=== PATIENT | female | born 1950 | race Caucasian/White ===

== ENCOUNTER 2018-05-05 11:44 | Outpatient (CLI) | payer OTHER | END 2018-05-05 15:00 | disposition home or self-care (01) | LOC: RAD 11:44 | DX: M99.01 Segmental and somatic dysfunction of cervical region (principal); M53.0 Cervicocranial syndrome; M99.02 Segmental and somatic dysfunction of thoracic region; M54.6 Pain in thoracic spine; M99.03 Segmental and somatic dysfunction of lumbar region; M54.16 Radiculopathy, lumbar region; M99.04 Segmental and somatic dysfunction of sacral region ==

== ENCOUNTER 2020-11-10 14:45 | Outpatient (CLI) | payer OTHER | END 2020-11-10 15:00 | disposition home or self-care (01) | LOC: PPH VACUNA 14:45 | PROVIDERS: ATTEND Emergency Medicine Pediatric Emergency Medicine | DX: Z23 Encounter for immunization (principal) ==

== ENCOUNTER 2020-12-01 13:56 | Outpatient (CLI) | payer OTHER | END 2020-12-01 13:57 | disposition home or self-care (01) | LOC: PPH VACUNA 13:56 | PROVIDERS: ATTEND Emergency Medicine Pediatric Emergency Medicine | DX: Z23 Encounter for immunization (principal) ==

== ENCOUNTER 2022-02-15 09:00 | Outpatient (CLI) | payer OTHER | END 2022-02-15 09:15 | disposition home or self-care (01) | LOC: PPH VACUNA 09:00 | PROVIDERS: ATTEND Emergency Medicine Pediatric Emergency Medicine | DX: Z23 Encounter for immunization (principal) ==

== ENCOUNTER 2022-08-09 10:24 | Outpatient (CLI) | payer OTHER | END 2022-08-09 10:34 | disposition home or self-care (01) | LOC: MAMO-SONO 10:24 | PROVIDERS: ATTEND General Practice | DX: R92.8 Other abnormal and inconclusive findings on diagnostic imaging of breast (principal); Z12.39 Encounter for other screening for malignant neoplasm of breast; N84.1 Polyp of cervix uteri; Z12.9 Encounter for screening for malignant neoplasm, site unspecified; R87.9 Unspecified abnormal finding in specimens from female genital organs ==

== ENCOUNTER 2024-01-30 10:57 | Outpatient (CLI) | payer OTHER | END 2024-01-30 11:04 | disposition home or self-care (01) | LOC: SONOGRAMA 10:57 | PROVIDERS: ATTEND General Practice | DX: R10.31 Right lower quadrant pain (principal); D25.1 Intramural leiomyoma of uterus ==